=== PATIENT | female | born 1965 | race Caucasian/White ===

== ENCOUNTER 2022-05-12 09:58 | Day surgery (SDC) | payer OTHER ==
[2022-05-12] MEDS ORDERED: Depo-Medrol 40 MG/ML IM ONE (09:59)
[2022-05-12] MEDS ORDERED: BUPIVACAINE 0.5% VIAL IJ ONE (09:59)
[2022-05-12] MEDS ORDERED: DIPRIVAN 200 MG/20 ML IV ONE (12:08)
[2022-05-12] MEDS ORDERED: Lactated Ringers 1,000 ML IV ONE (13:18)
--- NOTE | 2022-05-12 14:36 | XRAY ---
Indication: Bilateral SI joint injection. Intraoperative fluoroscopy provided for 15 seconds. 4 digital spot image submitted for interpretation demonstrates posterior needle tip projecting over the left and right SI joint. Correlate with intraoperative findings/report.
--- NOTE | 2022-05-12 14:49 | XRAY ---
15 seconds fluoroscopy time in surgery for bilateral SI joint injections.
== END 2022-05-12 12:26 | disposition home or self-care (01) ==
LOC: SDC-PAIN 09:58
PROVIDERS: ATTEND Psychiatry & Neurology Pain Medicine
DX: M46.1 Sacroiliitis, not elsewhere classified (principal); E11.9 Type 2 diabetes mellitus without complications; Z79.899 Other long term (current) drug therapy
CPT/HCPCS: 01992; 27096; 72202; 77002; 82947; G0260; J1030; J2704

== ENCOUNTER 2022-06-30 08:20 | Day surgery (SDC) | payer OTHER ==
[2022-06-30] MEDS ORDERED: Depo-Medrol 40 MG/ML IM ONE (08:21)
[2022-06-30] MEDS ORDERED: LIDOCAINE HCL 2% 100 MG/5 ML IJ ONE (08:21)
[2022-06-30] MEDS ORDERED: DIPRIVAN 200 MG/20 ML IV ONE (10:12)
[2022-06-30] MEDS ORDERED: Versed 2 MG/2 ML Injection ONE (10:22)
--- NOTE | 2022-06-30 12:16 | XRAY ---
Indication: Bilateral L4-S1 MBB. Intraoperative fluoroscopy provided for 12 seconds. Single digital spot image submitted for interpretation demonstrates posterior needle tips projecting over the expected left and right L4-S1 nerve roots. Correlate with intraoperative findings/report.
--- NOTE | 2022-06-30 12:44 | XRAY ---
12 seconds of fluoroscopy was used in surgery for a bilateral L4-S1 MBB.
[2022-06-30] MEDS ORDERED: Lactated Ringers 1,000 ML IV ONE (13:16)
== END 2022-06-30 10:50 | disposition home or self-care (01) ==
LOC: SDC-PAIN 08:20
PROVIDERS: ATTEND Psychiatry & Neurology Pain Medicine
DX: M47.816 Spondylosis without myelopathy or radiculopathy, lumbar region (principal); E11.9 Type 2 diabetes mellitus without complications; Z79.899 Other long term (current) drug therapy
CPT/HCPCS: 64493; 64494; 72020; 77002; 82947; J1030; J2250; J2704

== ENCOUNTER 2022-07-14 10:17 | Day surgery (SDC) | payer OTHER ==
[2022-07-14] MEDS ORDERED: BUPIVACAINE 0.5% VIAL IJ ONE (10:18)
[2022-07-14] MEDS ORDERED: Depo-Medrol 40 MG/ML IM ONE (10:18)
[2022-07-14] MEDS ORDERED: DIPRIVAN 200 MG/20 ML IV ONE (12:23)
[2022-07-14] MEDS ORDERED: Lactated Ringers 1,000 ML IV ONE (15:41)
--- NOTE | 2022-07-14 17:05 | XRAY ---
12 seconds of fluoroscopy was used in surgery for a bilateral L4-S1 MBB.
== END 2022-07-14 13:00 | disposition home or self-care (01) ==
LOC: SDC-PAIN 10:17
PROVIDERS: ATTEND Psychiatry & Neurology Pain Medicine
DX: M47.816 Spondylosis without myelopathy or radiculopathy, lumbar region (principal); E11.9 Type 2 diabetes mellitus without complications; Z79.899 Other long term (current) drug therapy
CPT/HCPCS: 64493; 64494; 72020; 77002; 82947; J1030; J2704

== ENCOUNTER 2022-08-11 07:08 | Day surgery (SDC) | payer OTHER ==
[2022-08-11] MEDS ORDERED: BUPIVACAINE 0.5% VIAL IJ ONE (07:09)
[2022-08-11] MEDS ORDERED: Depo-Medrol 40 MG/ML IM ONE (07:09)
[2022-08-11] MEDS ORDERED: LIDOCAINE HCL 1% 50 MG/5 ML VL PF IJ ONE (07:09)
[2022-08-11] MEDS ORDERED: DIPRIVAN 200 MG/20 ML IV ONE (08:49)
--- NOTE | 2022-08-11 09:59 | XRAY ---
Indication: Right L4-S1 RFA. Intraoperative fluoroscopy provided for 21 seconds. 4 digital spot images submitted for interpretation demonstrates posterior needle tips projecting over the expected right L4-S1 nerve roots. Correlate with intraoperative findings/report.
--- NOTE | 2022-08-11 10:19 | XRAY ---
21 seconds of fluoroscopy was used in surgery for a right L4-S1 RFA.
[2022-08-11] MEDS ORDERED: Lactated Ringers 1,000 ML IV ONE (10:43)
== END 2022-08-11 09:20 | disposition home or self-care (01) ==
LOC: SDC-PAIN 07:08
PROVIDERS: ATTEND Psychiatry & Neurology Pain Medicine
DX: M47.816 Spondylosis without myelopathy or radiculopathy, lumbar region (principal); E11.9 Type 2 diabetes mellitus without complications; Z79.899 Other long term (current) drug therapy
CPT/HCPCS: 64635; 64636; 72100; 77002; 82947; J1030; J2001; J2704

== ENCOUNTER 2022-08-18 07:17 | Day surgery (SDC) | payer OTHER ==
[2022-08-18] MEDS ORDERED: BUPIVACAINE 0.5% VIAL IJ ONE (07:18)
[2022-08-18] MEDS ORDERED: LIDOCAINE HCL 1% 50 MG/5 ML VL PF IJ ONE (07:18)
[2022-08-18] MEDS ORDERED: Depo-Medrol 40 MG/ML IM ONE (07:18)
[2022-08-18] MEDS ORDERED: DIPRIVAN 200 MG/20 ML IV ONE (08:16)
--- NOTE | 2022-08-18 09:08 | XRAY ---
Indication: Left L4-S1 RFA. Intraoperative fluoroscopy provided for 20 seconds. 4 digital spot image submitted for interpretation demonstrates posterior needle tips projecting over the expected left L4-S1 nerve roots. Correlate with intraoperative findings/report.
--- NOTE | 2022-08-18 12:16 | XRAY ---
20 seconds of fluoroscopy was used in surgery for a left L4-S1 RFA.
[2022-08-18] MEDS ORDERED: Lactated Ringers 1,000 ML IV ONE (14:09)
== END 2022-08-18 08:23 | disposition home or self-care (01) ==
LOC: SDC-PAIN 07:17
PROVIDERS: ATTEND Psychiatry & Neurology Pain Medicine
DX: M47.816 Spondylosis without myelopathy or radiculopathy, lumbar region (principal); E11.9 Type 2 diabetes mellitus without complications; Z79.899 Other long term (current) drug therapy
CPT/HCPCS: 64635; 64636; 72100; 77002; 82947; J1030; J2001; J2704

== ENCOUNTER 2022-09-22 08:06 | Day surgery (SDC) | payer OTHER ==
[2022-09-22] MEDS ORDERED: Depo-Medrol 40 MG/ML IM ONE (08:07)
[2022-09-22] MEDS ORDERED: BUPIVACAINE 0.5% VIAL IJ ONE (08:07)
[2022-09-22] MEDS ORDERED: DIPRIVAN 200 MG/20 ML IV ONE (10:07)
--- NOTE | 2022-09-22 10:57 | XRAY ---
Indication: Bilateral SI joint injection. Intraoperative fluoroscopy provided for 20 seconds. 4 digital spot image submitted for interpretation demonstrates posterior needle tip projecting over the left and right SI joint. Correlate with intraoperative findings/report.
[2022-09-22] MEDS ORDERED: Lactated Ringers 1,000 ML IV ONE (11:05)
--- NOTE | 2022-09-22 13:18 | XRAY ---
20 seconds of fluoroscopy was used in surgery for a bilateral sacroiliac joint injection.
== END 2022-09-22 10:35 | disposition home or self-care (01) ==
LOC: SDC-PAIN 08:06
PROVIDERS: ATTEND Psychiatry & Neurology Pain Medicine
DX: M46.1 Sacroiliitis, not elsewhere classified (principal); Z79.899 Other long term (current) drug therapy
CPT/HCPCS: 01992; 27096; 72202; 77002; 82947; G0260; J1030; J2704

== ENCOUNTER 2022-10-27 11:02 | Day surgery (SDC) | payer OTHER ==
[2022-10-27] MEDS ORDERED: Decadron 4 MG INJ IV ONE (11:03)
[2022-10-27] MEDS ORDERED: LIDOCAINE HCL 2% 100 MG/5 ML IJ ONE (11:03)
[2022-10-27] MEDS ORDERED: DIPRIVAN 200 MG/20 ML IV ONE (13:17)
--- NOTE | 2022-10-27 14:05 | XRAY ---
Indication: Right C2-C4 MBB. Intraoperative fluoroscopy provided for 19 seconds. 3 digital spot image submitted for interpretation demonstrates posterior needle tips projecting over the expected right C2-C4 nerve roots. Correlate with intraoperative findings/report.
--- NOTE | 2022-10-27 14:08 | XRAY ---
19 seconds of fluoroscopy was used in surgery for a right C2-C4 MBB.
[2022-10-27] MEDS ORDERED: Lactated Ringers 1,000 ML IV ONE (15:24)
== END 2022-10-27 13:38 | disposition home or self-care (01) ==
LOC: SDC-PAIN 11:02
PROVIDERS: ATTEND Psychiatry & Neurology Pain Medicine
DX: M47.812 Spondylosis without myelopathy or radiculopathy, cervical region (principal); E11.9 Type 2 diabetes mellitus without complications; Z79.899 Other long term (current) drug therapy
CPT/HCPCS: 64490; 64491; 72040; 77002; 82947; J1100; J2704

== ENCOUNTER 2022-12-01 06:23 | Day surgery (SDC) | payer OTHER ==
[2022-12-01] MEDS ORDERED: BUPIVACAINE 0.5% VIAL IJ ONE (06:24)
[2022-12-01] MEDS ORDERED: Decadron 4 MG INJ IV ONE (06:24)
[2022-12-01] MEDS ORDERED: DIPRIVAN 200 MG/20 ML IV ONE ×2 (08:28→08:38)
--- NOTE | 2022-12-01 10:06 | XRAY ---
Indication: Right C2-C4 MBB. Intraoperative fluoroscopy provided for 28 seconds. 3 digital spot image submitted for interpretation demonstrates posterior needle tips projecting over the expected right C2-C4 nerve roots. Correlate with intraoperative findings/report.
[2022-12-01] MEDS ORDERED: Lactated Ringers 1,000 ML IV ONE (10:42)
--- NOTE | 2022-12-01 12:27 | XRAY ---
28 seconds of fluoroscopy was used in surgery for a right C2-C4 MBB.
== END 2022-12-01 09:03 | disposition home or self-care (01) ==
LOC: SDC-PAIN 06:23
PROVIDERS: ATTEND Psychiatry & Neurology Pain Medicine
DX: M47.812 Spondylosis without myelopathy or radiculopathy, cervical region (principal); Z79.899 Other long term (current) drug therapy
CPT/HCPCS: 64490; 64491; 72040; 77002; 82947; J1100; J2704

== ENCOUNTER 2023-04-20 13:52 | Day surgery (SDC) | payer OTHER ==
[2023-04-20] MEDS ORDERED: Sodium Chloride 0.9(Preservative Free) 10 ML IJ ONE (13:53)
[2023-04-20] MEDS ORDERED: XYLOCAINE-MPF 1% 5ML SDV IJ ONE (13:53)
[2023-04-20] MEDS ORDERED: Decadron 4 MG INJ IV ONE (13:53)
[2023-04-20] MEDS ORDERED: Lactated Ringers 1,000 ML IV ONE (17:19)
--- NOTE | 2023-04-20 20:07 | XRAY ---
Indication: Cervical MICHELE. Intraoperative fluoroscopy provided for 40 seconds. 4 digital spot image submitted for interpretation demonstrates posterior needle tip projecting posterior to cervical thoracic junction. Small amount of contrast injected for needle tip placement. Correlate with intraoperative findings/report.
--- NOTE | 2023-04-21 09:16 | XRAY ---
40 seconds of fluoroscopy was used in surgery for a cervical MICHELE.
== END 2023-04-20 17:28 | disposition home or self-care (01) ==
LOC: SDC-PAIN 13:52
PROVIDERS: ATTEND Psychiatry & Neurology Pain Medicine
DX: M54.12 Radiculopathy, cervical region (principal); E11.9 Type 2 diabetes mellitus without complications
CPT/HCPCS: 62321; 72040; 77003; 82947; J1100; Q9966

== ENCOUNTER 2023-11-10 08:13 | Day surgery (SDC) | payer OTHER ==
[2023-11-10] MEDS ORDERED: BUPIVACAINE 0.5% VIAL IJ ONE (08:14)
[2023-11-10] MEDS ORDERED: Depo-Medrol 40 MG/ML IM ONE (08:14)
[2023-11-10] MEDS ORDERED: DIPRIVAN 200 MG/20 ML IV ONE (10:17)
[2023-11-10] MEDS ORDERED: Lactated Ringers 1,000 ML IV ONE (10:30)
--- NOTE | 2023-11-10 12:15 | XRAY ---
Indication: Bilateral SI joint injection. Intraoperative fluoroscopy provided for 12 seconds. 2 digital spot image submitted for interpretation demonstrates posterior needle tips projecting over the expected left and right SI joint. Small amount of contrast injected for needle tip placement. Correlate with intraoperative findings/report.
--- NOTE | 2023-11-10 12:59 | XRAY ---
12 seconds of fluoroscopy was used in surgery for a bilateral sacroiliac joint injection.
== END 2023-11-10 11:02 | disposition home or self-care (01) ==
LOC: SDC-PAIN 08:13
PROVIDERS: ATTEND Psychiatry & Neurology Pain Medicine
DX: M46.1 Sacroiliitis, not elsewhere classified (principal); E11.9 Type 2 diabetes mellitus without complications
CPT/HCPCS: 27096; 72202; 77002; 82947; J2704; Q9966; G0260

== ENCOUNTER 2024-02-02 06:44 | Day surgery (SDC) | payer OTHER ==
[2024-02-02] MEDS ORDERED: BUPIVACAINE 0.5% VIAL IJ ONE (06:45)
[2024-02-02] MEDS ORDERED: LIDOCAINE HCL 1% AMPUL 5 ML IJ ONE (06:45)
[2024-02-02] MEDS ORDERED: Depo-Medrol 40 MG/ML IM ONE (06:45)
[2024-02-02] MEDS ORDERED: DIPRIVAN 200 MG/20 ML IV ONE ×2 (08:02→08:11)
--- NOTE | 2024-02-02 09:50 | XRAY ---
Indication: Right L4-S1 RFA. Intraoperative fluoroscopy provided for 22 seconds. 4 digital spot image submitted for interpretation demonstrates posterior needle tips projecting over the expected right L4-S1 nerve roots. Correlate with intraoperative findings/report.
--- NOTE | 2024-02-02 10:42 | XRAY ---
22 seconds of fluoroscopy was used in surgery for a right L4-S1 RFA.
== END 2024-02-02 08:50 | disposition home or self-care (01) ==
LOC: SDC-PAIN 06:44
PROVIDERS: ATTEND Psychiatry & Neurology Pain Medicine
DX: M47.816 Spondylosis without myelopathy or radiculopathy, lumbar region (principal); E11.9 Type 2 diabetes mellitus without complications
CPT/HCPCS: 64635; 64636; 72100; 77002; 82947; J2704

== ENCOUNTER 2024-02-08 07:11 | Day surgery (SDC) | payer OTHER ==
[2024-02-08] MEDS ORDERED: Depo-Medrol 40 MG/ML IM ONE (07:12)
[2024-02-08] MEDS ORDERED: BUPIVACAINE 0.5% VIAL IJ ONE (07:12)
[2024-02-08] MEDS ORDERED: LIDOCAINE HCL 1% AMPUL 5 ML IJ ONE (07:12)
[2024-02-08] MEDS ORDERED: DIPRIVAN 200 MG/20 ML IV ONE (09:38)
--- NOTE | 2024-02-08 10:14 | XRAY ---
Indication: Left L4-S1 RFA. Intraoperative fluoroscopy provided for 16 seconds. 3 digital spot image submitted for interpretation demonstrates posterior needle tips projecting over the expected left L4-S1 nerve root. Correlate with intraoperative findings/report.
--- NOTE | 2024-02-08 11:47 | XRAY ---
16 seconds of fluoroscopy was used in surgery for a left L4-S1 RFA.
== END 2024-02-08 09:15 | disposition home or self-care (01) ==
LOC: SDC-PAIN 07:11
PROVIDERS: ATTEND Psychiatry & Neurology Pain Medicine
DX: M47.817 Spondylosis without myelopathy or radiculopathy, lumbosacral region (principal); E11.9 Type 2 diabetes mellitus without complications
CPT/HCPCS: 72100; 77002; 82947; J2704

== ENCOUNTER 2024-05-17 13:39 | Emergency (ER) | payer OTHER ==
--- NOTE | 2024-05-17 13:41 | ERPHSYRPT ---
- History of Present Illness Time Seen by Provider: 05/17/24 13:40 Source: patient, family Exam Limitations: no limitations Physician History: This is an overweight 58-year-old white female patient of Dr. Felix who presents to the emergency department by private vehicle with 4-day history of cough, sore throat, nasal congestion, shortness of breath with coughing, headache and nausea. Patient's room air oxygen saturation level today in the emergency department is 97%. Patient has a history of gastroesophageal reflux disease, diabetes and seasonal allergies. She has no chest pain. Timing/Duration: day(s) (4), worse Cough Quality/Degree: mild, dry cough Possible Cause: no prior episodes Modifying Factors: Improves With: coughing Associated Symptoms: cough, nasal congestion, sore throat Allergies/Adverse Reactions: cephalexin [From Keflex] Allergy (Unknown, Verified 05/17/24 13:55) diphenhydramine [From Benadryl] Adverse Reaction (Intermediate, Verified 05/17/24 13:55) restless leg Home Medications: Cetirizine HCl/Pseudoephedrine [Zyrtec-D Tablet] 1 each PO DAILY 08/13/15 [History] Ibuprofen [Advil] 200 mg PO DAILY PRN 03/31/21 [History] Multivitamin [Multi-Vitamin Daily] 1 each PO DAILY 03/31/21 [History] Pramipexole Di-HCl [Pramipexole ER] 2.25 mg PO DAILY 03/31/21 [History] Celecoxib 100 mg [celeBREX 100 MG] 1 tab PO DAILY 12/17/23 [History] Dapagliflozin Propanediol [Farxiga] 10 mg PO DAILY 12/17/23 [History] Ezetimibe 10 mg [Zetia 10 MG] 10 mg PO DAILY 12/17/23 [History] Hx Tetanus, Diphtheria Vaccination/Date Given: No Hx Influenza Vaccination/Date Given: No Hx Pneumococcal Vaccination/Date Given: No Travel Risk - International Travel Have you traveled outside of the country in past 3 weeks: No - Emerging Infectious Disease Are you exhibiting symptoms associated with any current EIDs: No Symptoms: Cough: New Onset, Headaches/Body Aches/, Shortness of Breath - Review of Systems Constitutional: No Symptoms Eyes: No Symptoms Ears, Nose, & Throat: Nose Congestion, Throat Pain Respiratory: Cough Cardiac: No Symptoms Abdominal/Gastrointestinal: No Symptoms Genitourinary Symptoms: No Symptoms Musculoskeletal: No Symptoms Skin: No Symptoms Neurological: No Symptoms Psychological: No Symptoms Endocrine: No Symptoms Hematologic/Lymphatic: No Symptoms Immunological/Allergic: No Symptoms All Other Systems: Reviewed and Negative - Past Medical History Pertinent Past Medical History: Yes Neurological History: No Pertinent History, Migraines ENT History: No Pertinent History Cardiac History: No Pertinent History Respiratory History: No Pertinent History Endocrine Medical History: No Pertinent History, Diabetes Type II Musculoskeletal History: No Pertinent History GI Medical History: No Pertinent History, GERD History: No Pertinent History Psycho-Social History: No Pertinent History Female Reproductive Disorders: No Pertinent History - Past Surgical History Past Surgical History: Yes Neuro Surgical History: No Pertinent History Cardiac: No Pertinent History Respiratory: No Pertinent History Gastrointestinal: Cholecystectomy Genitourinary: No Pertinent History Musculoskeletal: No Pertinent History Female Surgical History: No Pertinent History, Hysterectomy, Other Other Surgical History: ablation - Social History Smoking Status: Never smoker Exposure to second hand smoke: No Drug Use: none - Social Determinants of Health Will the patient participate in the screening: Yes Do you worry about a steady place to live?: No In the past 12 months,have you had to go without utilities?: No Transportation Issues: No Has anyone in your support network made you feel unsafe?: No Have you or anyone in your house had to go w/o enough food: No - Nursing Vital Signs Nursing Vital Signs: Initial Vital Signs Temperature 99.4 F 05/17/24 13:55 Pulse Rate 119 H 05/17/24 13:55 Respiratory Rate 18 05/17/24 13:55 Blood Pressure 118/73 05/17/24 13:55 O2 Sat by Pulse Oximetry 97 05/17/24 13:55 Pain Scale Pain Intensity 9 - Physical Exam General Appearance: no apparent distress, alert, anxiety Eye Exam: PERRL/EOMI, eyes nml inspection Ears, Nose, Throat Exam: normal ENT inspection, moist mucous membranes Neck Exam: normal inspection, non-tender, supple, full range of motion Respiratory Exam: normal breath sounds, lungs clear, airway intact, No chest tenderness, No respiratory distress Cardiovascular Exam: tachycardia Gastrointestinal/Abdomen Exam: soft, normal bowel sounds, No tenderness Pelvic Exam: not done Rectal Exam: not done Back Exam: normal inspection, normal range of motion, No CVA tenderness, No vertebral tenderness Extremity Exam: normal inspection, normal range of motion, pelvis stable Neurologic Exam: alert, oriented x 3, cooperative, explosive operator fuse II-XII nml as tested, nml cerebellar function, nml station & gait, sensation nml Skin Exam: normal color, warm, dry SpO2 Interpretation: normal O2 Delivery: Room Air - Course Nursing assessment & vital signs reviewed: Yes Ordered Tests: Active Orders 24 hr Category Date Time Status CHEST 1 VIEW (PORTABLE) Stat Exams 05/17/24 14:17 Completed Medication Summary Discontinued Medications Generic Name Dose Route Start Last Admin Trade Name Freq PRN Reason Stop Dose Admin Hydrocodone Bitart/Acetaminophen 10 ml 05/17/24 14:28 05/17/24 14:38 Hydrocodone/Acetaminophen 5 Ml Udcup PO 05/17/24 14:29 10 ml STAT STA Administration Hydrocodone Bitart/Acetaminophen Confirm 05/17/24 14:35 Hydrocodone/Acetaminophen 5 Ml Udcup Administered 05/17/24 14:36 Dose 10 ml .ROUTE .STK-MED ONE Methylprednisolone Sodium 0 mg 05/17/24 14:28 05/17/24 14:40 Succinate 125 mg/ Sterile IM 05/17/24 14:29 125 mg Water 2 ml STAT ONE Administration Methylprednisolone Sodium Succinate Confirm 05/17/24 14:36 Methylprednis Sod Succ 125 Mg/2 Ml Vial Administered 05/17/24 14:37 Dose 125 mg .ROUTE .STK-MED ONE Ondansetron HCl 4 mg 05/17/24 14:28 05/17/24 14:38 Zofran 4 Mg/Udtablet Orally Disintegrating PO 05/17/24 14:29 4 mg STAT ONE Administration Ondansetron HCl Confirm 05/17/24 14:35 Zofran 4 Mg/Udtablet Orally Disintegrating Administered 05/17/24 14:36 Dose 4 mg .ROUTE .STK-MED ONE Sterile Water Confirm 05/17/24 14:35 Water For Injection,Sterile 10 Ml Vial Administered 05/17/24 14:36 Dose 10 ml IJ .STK-MED ONE Lab/Rad Data: Laboratory Results 05/17/24 05/17/24 Range/Units 15:35 15:35 Influenza Type A Ag POSITIVE A (NEGATIVE) Influenza Type B Ag NEGATIVE (NEGATIVE) RSV (PCR) NEGATIVE (NEGATIVE) SARS-CoV-2 (PCR) NEGATIVE (NEGATIVE) Group A Strep Antibody NOT DETECTED (NEGATIVE) - Progress Progress: improved, re-examined Air Movement: good Progress Note: 05/17/24 14:48 My medical decision making and the assignment of moderate complexity to this patient's medical issue today is based on review of the patient's past medical history, review of the patient's medication list, reviewed patient drug allergy list, history present illness and physical findings on examination. The workup in this patient includes viral swabs, group A strep test and chest x-ray. Differential diagnosis includes but is not limited to viral illness, strep pharyngitis, upper respiratory infection, pneumonia The chest x-ray was interpreted by the radiologist and I reviewed the impression. The impression states no acute cardiopulmonary process. 05/17/24 16:30 I interpreted the patient's laboratory data results. Based on the laboratory data results the patient does have influenza A. Blood Culture(s) Obtained: No Antibiotics given: No Counseled pt/family regarding: lab results, diagnosis, rad results Medical Desision Making - Diagnostic Testing Diagnostic test were ordered, analyzed, and reviewed by me: Yes Radiological Interpretation: Reviewed by me, Teleradiologist Report - Risk of complications The pt has a mod risk of morbidity or mortality based on: Need for prescription drug management - Departure Departure Disposition: Home Clinical Impression: Influenza A H1N1 infection Condition: Stable Critical Care Time: No Referrals: KATRIN FELIX MD [Primary Care Provider] - Follow up/PCP as directed Additional Instructions: Drink plenty of clear liquids. Monitor your blood sugar levels while taking the prednisone. Call your primary care physician's office tomorrow, 05/18/2024, to make arranges for follow-up appointment for further evaluation management. Prescriptions: Prednisone 10 mg [Deltasone 10 mg] 10 mg PO TID #12 tablet Hydrocodone/Acetaminophen [Hydrocodone-Acetamn 7.5-325/15] 10 ml PO Q8H PRN #120 ml MDD 30 ml PRN Reason: Cough
[2024-05-17 14:11] VITALS: TEMP 99.4
[2024-05-17] MEDS ORDERED: HYDROCODONE-ACETAMIN 2.5-108/5 ML SOLUTION ONE (14:35)
[2024-05-17] MEDS ORDERED: Sterile H2O 10 ml IJ ONE (14:35)
[2024-05-17] MEDS ORDERED: ZOFRAN ODT 4 MG ONE (14:35)
[2024-05-17] MEDS ORDERED: solu-MEDROL ONE (14:36)
[2024-05-17] MEDS: HYDROCODONE-ACETAMIN 2.5-108/5 ML SOLUTION PO STA (14:38)
[2024-05-17] MEDS: ZOFRAN ODT 4 MG PO ONE (14:38)
[2024-05-17] MEDS: solu-MEDROL 125 MG, Sterile H2O 10 ml 2 ML IM ONE (14:40)
--- NOTE | 2024-05-17 14:43 | XRAY ---
Indication: Cough. Short of breath. Comparison: None Portable chest demonstrates normal heart and lungs. Bony thorax intact.
[2024-05-17 15:25] VITALS: RESP 15
[2024-05-17 16:10] VITALS: BP 99/62; PULSE 87; O2SAT 92
[2024-05-17 16:20] LABS: INFLUENZA B NEGATIVE (NEGATIVE); RESPIRATORY SYNCTIAL VIRUS NEGATIVE (NEGATIVE); SARS-CoV-2 Xpert Express NEGATIVE (NEGATIVE)
[2024-05-17 16:21] LABS: INFLUENZA A POSITIVE (NEGATIVE)
== END 2024-05-17 17:06 | disposition home or self-care (01) ==
LOC: ED 13:39
DX: J10.1 Influenza due to other identified influenza virus with other respiratory manifestations (principal); R05.1 Acute cough; R09.81 Nasal congestion; R06.02 Shortness of breath; R51.9 Headache, unspecified; R11.0 Nausea; E11.9 Type 2 diabetes mellitus without complications; Z79.52 Long term (current) use of systemic steroids; Z79.891 Long term (current) use of opiate analgesic; Z79.84 Long term (current) use of oral hypoglycemic drugs; Z79.899 Other long term (current) drug therapy
CPT/HCPCS: 0241U; 71045; 87651; 96372; 99284; J2919; Q0162; A9270-GY

== ENCOUNTER 2024-05-19 22:39 | Emergency (ER) | payer OTHER ==
[2024-05-19 22:56] VITALS: RESP 18; TEMP 97.8; O2SAT 98
[2024-05-19] MEDS ORDERED: NORCO 5/325 MG ONE (23:12)
[2024-05-19] MEDS ORDERED: TORAdol 30 mg Injection ONE (23:12)
[2024-05-19] MEDS: TORAdol 30 mg Injection IM ONE (23:13)
[2024-05-19] MEDS: NORCO 5/325 MG PO ONE (23:19)
--- NOTE | 2024-05-19 23:50 | ERPHSYRPT ---
- History of Present Illness Time Seen by Provider: 05/19/24 22:52 Source: patient Exam Limitations: no limitations Patient Subjective Stated Complaint: pt states that her blood sugar at home was 215 at home Triage Nursing Assessment: pt ambulated into the er; pt is axo x4; c/o hyperglycemia; blood sugar on arrival 132; c/o headache; pt states 9/10 pain; pt is positive for flu; skin PDW; vitals wnl Physician History: 58 years old female with history of diabetes mellitus, diagnosed with influenza 2 days ago, placed on steroid presented in the ER with complaints of elevated glucose and headache along with bodyaches. Patient reports still feeling congested, nonproductive cough, aches and pains all over but headache is getting worse. Patient has not taken any [id number] medication for headache. She checked her glucose prior to arrival it was in low 200s, on presentation in the ER is 132. No difficulty breathing. No vomiting or diarrhea. Allergies/Adverse Reactions: cephalexin [From Keflex] Allergy (Unknown, Verified 05/19/24 22:46) diphenhydramine [From Benadryl] Adverse Reaction (Intermediate, Verified 05/19/24 22:46) restless leg Home Medications: Cetirizine HCl/Pseudoephedrine [Zyrtec-D Tablet] 1 each PO DAILY 08/13/15 [History] Ibuprofen [Advil] 200 mg PO DAILY PRN 03/31/21 [History] Multivitamin [Multi-Vitamin Daily] 1 each PO DAILY 03/31/21 [History] Pramipexole Di-HCl [Pramipexole ER] 2.25 mg PO DAILY 03/31/21 [History] Celecoxib 100 mg [celeBREX 100 MG] 1 tab PO DAILY 12/17/23 [History] Dapagliflozin Propanediol [Farxiga] 10 mg PO DAILY 12/17/23 [History] Ezetimibe 10 mg [Zetia 10 MG] 10 mg PO DAILY 12/17/23 [History] Hx Tetanus, Diphtheria Vaccination/Date Given: No Hx Influenza Vaccination/Date Given: No Hx Pneumococcal Vaccination/Date Given: No Travel Risk - International Travel Have you traveled outside of the country in past 3 weeks: No - Emerging Infectious Disease Are you exhibiting symptoms associated with any current EIDs: Yes Symptoms: Cough: New Onset, Headaches/Body Aches/ Comment: flu a positive - Review of Systems Constitutional: Fatigue Ears, Nose, & Throat: Nose Congestion, Throat Pain, Throat Swelling Respiratory: Cough Cardiac: No Symptoms Musculoskeletal: Back Pain, Myalgias Neurological: Headache Psychological: No Symptoms Endocrine: No Symptoms - Past Medical History Pertinent Past Medical History: Yes Neurological History: No Pertinent History, Migraines ENT History: No Pertinent History Cardiac History: No Pertinent History Respiratory History: No Pertinent History Endocrine Medical History: No Pertinent History, Diabetes Type II Musculoskeletal History: No Pertinent History GI Medical History: No Pertinent History, GERD History: No Pertinent History Psycho-Social History: No Pertinent History Female Reproductive Disorders: No Pertinent History - Past Surgical History Past Surgical History: Yes Neuro Surgical History: No Pertinent History Cardiac: No Pertinent History Respiratory: No Pertinent History Gastrointestinal: Cholecystectomy Genitourinary: No Pertinent History Musculoskeletal: No Pertinent History Female Surgical History: No Pertinent History, Hysterectomy, Other Other Surgical History: ablation - Social History Smoking Status: Never smoker Exposure to second hand smoke: No Drug Use: none - Social Determinants of Health Will the patient participate in the screening: Yes Do you worry about a steady place to live?: No Do you have any problems with any of the following?: No known problems In the past 12 months,have you had to go without utilities?: No Transportation Issues: No Has anyone in your support network made you feel unsafe?: No Have you or anyone in your house had to go w/o enough food: No - Nursing Vital Signs Nursing Vital Signs: Initial Vital Signs Pulse Rate 89 05/19/24 22:44 Blood Pressure 121/68 05/19/24 22:44 O2 Sat by Pulse Oximetry 98 05/19/24 22:44 Pain Scale Pain Intensity 9 - Physical Exam General Appearance: no apparent distress, alert Eye Exam: PERRL/EOMI Ears, Nose, Throat Exam: moist mucous membranes, pharyngeal erythema Neck Exam: normal inspection, non-tender, supple, full range of motion Respiratory Exam: normal breath sounds, lungs clear Cardiovascular Exam: regular rate/rhythm, normal heart sounds Gastrointestinal/Abdomen Exam: soft, normal bowel sounds, No tenderness Back Exam: normal inspection, normal range of motion Extremity Exam: normal inspection, normal range of motion Neurologic Exam: alert, oriented x 3, cooperative Skin Exam: normal color SpO2 Interpretation: normal SpO2: 98 O2 Delivery: Room Air Ordered Tests: Active Orders 24 hr Category Date Time Status POCT GLUCOSE Stat Lab 05/19/24 22:44 Completed Medication Summary Discontinued Medications Generic Name Dose Route Start Last Admin Trade Name [place] PRN Reason Stop Dose Admin Hydrocodone Bitart/Acetaminophen Confirm 05/19/24 23:12 Hydrocodone/Apap 5/325 1 Tab Tablet Administered 05/19/24 23:13 Dose 1 tab .ROUTE .STK-MED ONE Hydrocodone Bitart/Acetaminophen 1 tab 05/19/24 23:17 05/19/24 23:19 Hydrocodone/Apap 5/325 1 Tab Tablet PO 05/19/24 23:18 1 tab STAT ONE Administration Ketorolac Tromethamine 30 mg 05/19/24 23:10 05/19/24 23:13 Ketorolac Tromethamine 30 Mg/Ml Inj IM 05/19/24 23:11 30 mg STAT ONE Administration Ketorolac Tromethamine Confirm 05/19/24 23:12 Ketorolac Tromethamine 30 Mg/Ml Inj Administered 05/19/24 23:13 Dose 30 mg .ROUTE .STK-MED ONE Lab/Rad Data: Laboratory Results 05/19/24 Range/Units 22:44 POC Glucometer 132 H (74 to 106) mg/dL - Progress Progress: improved, re-examined Air Movement: good Progress Note: 05/19/24 23:47 58 years old is evaluated in ER for flulike symptoms. Patient has diagnosis of influenza and is on steroid. Patient glucose on presentation is 132. Lungs are clear to auscultation. She is given Toradol and [place] for symptomatic relief of headache, on reevaluation she is feeling better. She is advised to decrease the dose of steroid or she can discontinue if her glucose is staying high. Recommended taking Tylenol ibuprofen as needed and outpatient follow-up. Discussed signs symptoms of worsening needing return to ER which she seems understanding. Stable for discharge. Blood Culture(s) Obtained: No Antibiotics given: No Counseled pt/family regarding: lab results, diagnosis, need for follow-up Medical Desision Making - Diagnostic Testing Diagnostic test were ordered, analyzed, and reviewed by me: Yes - Risk of complications The pt has a mod risk of morbidity or mortality based on: Need for prescription drug management - Departure Departure Disposition: Home Clinical Impression: Viral syndrome, Headache Condition: Stable Critical Care Time: No Referrals: KATRIN FELIX MD [Primary Care Provider] - Follow up with PCP 1 day Instructions: Flu in adults - Discharge instructions Additional Instructions: Take Tylenol/ibuprofen as needed. Drink plenty of fluids to keep yourself well- hydrated. Monitor your blood sugar carefully while on steroid and return to ER for persistent high glucose. Return to ER for any worsening.
[2024-05-19 23:55] VITALS: BP 112/69; PULSE 80
== END 2024-05-19 23:56 | disposition home or self-care (01) ==
LOC: ED 22:39
DX: B34.9 Viral infection, unspecified (principal); R51.9 Headache, unspecified; M79.10 Myalgia, unspecified site; R05.9 Cough, unspecified; E11.9 Type 2 diabetes mellitus without complications; Z79.84 Long term (current) use of oral hypoglycemic drugs; Z79.899 Other long term (current) drug therapy
CPT/HCPCS: 82947; 96372; 99283; J1885; A9270-GY

== ENCOUNTER 2024-05-25 02:47 | Emergency (ER) | payer OTHER ==
[2024-05-25 03:19] VITALS: BP 148/76; TEMP 96.7
[2024-05-25] MEDS ORDERED: DECADRON 10MG INJ. ONE (04:25)
--- NOTE | 2024-05-25 04:28 | ERPHSYRPT ---
- History of Present Illness Time Seen by Provider: 05/25/24 04:07 Source: patient Exam Limitations: no limitations Patient Subjective Stated Complaint: c/o sorethroat, ear pain, and chest pain Triage Nursing Assessment: patient brought to ED with c/o sorethroat, headache, left sided ear pain, and chest pain. patient sstates that she was here twice last week and isn't feeling any better. Patient was diagnosed with influenza A. No redness or drainage noted in ears bilat. lung sounds faint but clear throughout, slightly hypertensive, skin w/n/d, s1 and s2 heard, gait steady, patient doesn't appear to be in any distress at this time. Physician History: 58 years old female with history of diabetes mellitus, diagnosed with influenza A almost a week ago who did not tolerate prednisone very well presented in the ER with having sinus/nasal congestion, sore throat, hoarseness. Patient reports no fever or chills. No difficulty breathing but soreness in the throat and stopped up sinuses, pressure in the ears. Allergies/Adverse Reactions: cephalexin [From Keflex] Allergy (Unknown, Verified 05/25/24 03:19) diphenhydramine [From Benadryl] Adverse Reaction (Intermediate, Verified 05/25 03:19) restless leg prednisolone Adverse Reaction (Verified 05/25/24 03:19) Rapid Heart Beat Home Medications: Cetirizine HCl/Pseudoephedrine [Zyrtec-D Tablet] 1 each PO DAILY 08/13/15 [History] Ibuprofen [Advil] 200 mg PO DAILY PRN 03/31/21 [History] Multivitamin [Multi-Vitamin Daily] 1 each PO DAILY 03/31/21 [History] Pramipexole Di-HCl [Pramipexole ER] 2.25 mg PO DAILY 03/31/21 [History] Celecoxib 100 mg [celeBREX 100 MG] 1 tab PO DAILY 12/17/23 [History] Dapagliflozin Propanediol [Farxiga] 10 mg PO DAILY 12/17/23 [History] Ezetimibe 10 mg [Zetia 10 MG] 10 mg PO DAILY 12/17/23 [History] Hx Tetanus, Diphtheria Vaccination/Date Given: No (unknown) Hx Influenza Vaccination/Date Given: No Hx Pneumococcal Vaccination/Date Given: No Travel Risk - International Travel Have you traveled outside of the country in past 3 weeks: No - Emerging Infectious Disease Are you exhibiting symptoms associated with any current EIDs: No Symptoms: Cough: New Onset, Headaches/Body Aches/ Comment: flu a positive - Review of Systems Constitutional: No Symptoms Eyes: No Symptoms Ears, Nose, & Throat: Nose Congestion, Throat Swelling Respiratory: Cough Cardiac: No Symptoms Abdominal/Gastrointestinal: No Symptoms Genitourinary Symptoms: No Symptoms Musculoskeletal: Myalgias Skin: No Symptoms Neurological: No Symptoms Hematologic/Lymphatic: No Symptoms Immunological/Allergic: No Symptoms - Past Medical History Pertinent Past Medical History: Yes Neurological History: No Pertinent History, Migraines ENT History: No Pertinent History Cardiac History: High Cholesterol Respiratory History: No Pertinent History Endocrine Medical History: No Pertinent History, Diabetes Type II Musculoskeletal History: No Pertinent History GI Medical History: No Pertinent History, GERD History: No Pertinent History Psycho-Social History: No Pertinent History Female Reproductive Disorders: No Pertinent History - Past Surgical History Past Surgical History: Yes Neuro Surgical History: No Pertinent History Cardiac: No Pertinent History Respiratory: No Pertinent History Gastrointestinal: Cholecystectomy Genitourinary: No Pertinent History Musculoskeletal: No Pertinent History Female Surgical History: No Pertinent History, Hysterectomy, Other Other Surgical History: ablation - Social History Smoking Status: Never smoker Exposure to second hand smoke: No Drug Use: none - Social Determinants of Health Will the patient participate in the screening: Declined to provide - Nursing Vital Signs Nursing Vital Signs: Initial Vital Signs Temperature 96.7 F 05/25/24 03:12 Pulse Rate 111 H 05/25/24 03:12 Respiratory Rate 15 05/25/24 03:12 Blood Pressure 148/76 05/25/24 03:12 O2 Sat by Pulse Oximetry 97 05/25/24 03:12 Pain Scale Pain Intensity 8 - Physical Exam General Appearance: no apparent distress, alert Eye Exam: PERRL/EOMI Ears, Nose, Throat Exam: moist mucous membranes, pharyngeal erythema Neck Exam: normal inspection, non-tender, supple, full range of motion, No meningismus Respiratory Exam: normal breath sounds, lungs clear Cardiovascular Exam: regular rate/rhythm, normal heart sounds Extremity Exam: normal inspection Neurologic Exam: alert, oriented x 3, cooperative, auto bumper straightener II-XII nml as tested Skin Exam: normal color SpO2 Interpretation: normal SpO2: 97 O2 Delivery: Room Air - Progress Progress: unchanged Air Movement: good Progress Note: 05/25/24 04:25 38 years old is evaluated in the ER for URI symptoms. She is not in any distress. Lungs clear to auscultation. She is afebrile, patient's symptoms are viral etiology, do not think patient needs antibiotics. After discussion with patient about effects of steroid on glucose control and the fact that patient did not have anaphylactic reaction to prednisone, given Decadron. I do not think patient has airway compromise, recommended taking Flonase along with Tylenol ibuprofen as needed and outpatient follow-up. Discussed signs symptoms of worsening needing return to ER which she seems understanding. Stable for discharge. Blood Culture(s) Obtained: No Antibiotics given: No Counseled pt/family regarding: diagnosis, need for follow-up Medical Desision Making - Diagnostic Testing Diagnostic test were ordered, analyzed, and reviewed by me: No - Risk of complications Low Risk: Low risk of morbidity from additional dx testing or treatment The pt has a mod risk of morbidity or mortality based on: Need for prescription drug management - Departure Departure Disposition: Home Clinical Impression: URI with cough and congestion Condition: Stable Critical Care Time: No Referrals: KATRIN FELIX MD [Primary Care Provider] - Follow up with PCP 1 day Instructions: Upper respiratory infection in adults - Discharge instructions Additional Instructions: Take Tylenol/ibuprofen as needed. Follow-up with primary care for reevaluation. Monitor your glucose regularly the next few days and may need to increase dose of your antidiabetic medications. Return to ER for any worsening. Prescriptions: Fluticasone Propionate [Flonase NASAL] 16 gm NS DAILY #1 inh
[2024-05-25] MEDS: DECADRON 10MG INJ. IM ONE (04:29)
[2024-05-25 05:03] VITALS: PULSE 79; RESP 18; O2SAT 95
== END 2024-05-25 05:09 | disposition home or self-care (01) ==
LOC: ED 02:47
DX: J06.9 Acute upper respiratory infection, unspecified (principal); R05.9 Cough, unspecified; R09.81 Nasal congestion; E11.9 Type 2 diabetes mellitus without complications; E78.5 Hyperlipidemia, unspecified; Z79.84 Long term (current) use of oral hypoglycemic drugs; Z79.899 Other long term (current) drug therapy
CPT/HCPCS: 96372; 99282; 99283; J1100

== ENCOUNTER 2024-06-13 08:11 | Day surgery (SDC) | payer OTHER ==
[2024-06-13] MEDS ORDERED: BUPIVACAINE 0.5% VIAL IJ ONE (08:12)
[2024-06-13] MEDS ORDERED: Depo-Medrol 40 MG/ML IM ONE (08:12)
[2024-06-13] MEDS ORDERED: propofoL IV ONE (09:42)
--- NOTE | 2024-06-13 11:29 | XRAY ---
Indication: Bilateral SI joint injection. Intraoperative fluoroscopy provided for 28 second. 4 digital spot image submitted for interpretation demonstrates posterior needle tips project over expected left and right SI joints. Small amount of contrast injected for needle tip placement. Correlate with intraoperative findings/report.
--- NOTE | 2024-06-13 14:44 | XRAY ---
28 seconds of fluoroscopy was used in surgery for a bilateral sacroiliac joint injection.
== END 2024-06-13 10:20 | disposition home or self-care (01) ==
LOC: SDC-PAIN 08:11
PROVIDERS: ATTEND Psychiatry & Neurology Pain Medicine
DX: M46.1 Sacroiliitis, not elsewhere classified (principal); E11.9 Type 2 diabetes mellitus without complications
CPT/HCPCS: 27096; 72202; 77002; 82947; J2704

== ENCOUNTER 2024-12-19 06:56 | Day surgery (SDC) | payer OTHER ==
[2024-12-19] MEDS ORDERED: BUPIVACAINE 0.5% VIAL IJ ONE (06:57)
[2024-12-19] MEDS ORDERED: methylPREDNISolone acetate IM ONE (06:57)
[2024-12-19] MEDS ORDERED: propofoL IV ONE (08:37)
[2024-12-19] MEDS ORDERED: Lactated Ringers 1,000 ML IV ONE (09:50)
--- NOTE | 2024-12-19 19:27 | XRAY ---
Indication: Bilateral SI joint injection. Intraoperative fluoroscopy provided for 24 seconds. 2 digital spot image submitted for interpretation demonstrates posterior needle tips projecting over left and right SI joints. Small amount of contrast injected for needle tip placement. Correlate with intraoperative findings/report.
--- NOTE | 2024-12-19 19:38 | XRAY ---
24 seconds of fluoroscopy was used in surgery for a bilateral sacroiliac joint injection.
== END 2024-12-19 09:08 | disposition home or self-care (01) ==
LOC: SDC-PAIN 06:56
PROVIDERS: ATTEND Psychiatry & Neurology Pain Medicine
DX: M46.1 Sacroiliitis, not elsewhere classified (principal); E11.9 Type 2 diabetes mellitus without complications

== ENCOUNTER 2025-01-23 08:58 | Day surgery (SDC) | payer OTHER ==
[2025-01-23] MEDS ORDERED: LIDOCAINE HCL 1% 50 MG/5 ML VL IJ ONE (08:59)
[2025-01-23] MEDS ORDERED: methylPREDNISolone acetate IM ONE (08:59)
[2025-01-23] MEDS ORDERED: BUPIVACAINE 0.5% VIAL IJ ONE (08:59)
[2025-01-23] MEDS ORDERED: propofoL IV ONE (11:06)
--- NOTE | 2025-01-23 11:56 | XRAY ---
Indication: Left L4-S1 RFA. Intraoperative fluoroscopy provided for 15 seconds. 4 digital spot images submitted for interpretation demonstrates posterior needle tips projecting over expected left L4-S1 nerve roots. Correlate with intraoperative findings/report.
--- NOTE | 2025-01-23 12:33 | XRAY ---
15 seconds of fluoroscopy was used in surgery for a left L4-S1 RFA.
[2025-01-23] MEDS ORDERED: Lactated Ringers 1,000 ML IV ONE (14:02)
== END 2025-01-23 11:50 | disposition home or self-care (01) ==
LOC: SDC-PAIN 08:58
PROVIDERS: ATTEND Psychiatry & Neurology Pain Medicine
DX: M47.817 Spondylosis without myelopathy or radiculopathy, lumbosacral region (principal); E11.9 Type 2 diabetes mellitus without complications